=== PATIENT | female | born 1945 | race Caucasian/White ===

== ENCOUNTER 2017-02-19 08:03 | Inpatient (IN) | payer MEDICARE, OTHER ==
[2017-02-19] MEDS ORDERED: Cholestyramine/Aspartame Powder 4 GM Packet PO PRN (12:03)
[2017-02-19] MEDS ORDERED: Take Home: Albuterol 6.7 GM Inhaler, 1 Inhaler Pack INH PRN (12:03)
[2017-02-19] MEDS ORDERED: EPINEPHrine 1:1000 1 MG/ML SDV IM PRN (12:03)
[2017-02-19] MEDS ORDERED: Fluticasone Propionate 110 MCG/Puff 12 GM Inhaler INH PRN (12:03)
[2017-02-19] MEDS ORDERED: Lactulose Soln 10 GM/15 ML 30 ML UD Cup PO PRN (12:03)
[2017-02-19] MEDS ORDERED: Methotrexate 2.5 MG Tab PO SCH (12:15)
[2017-02-19] MEDS: oxyCODONE 5 MG Tab PO PRN ×3 (13:09→21:24)
[2017-02-19] MEDS ORDERED: Cyanocobalamin (Vitamin B12) 1,000 MCG/ML SDV IM SCH (13:30)
[2017-02-19] MEDS: Simvastatin 10 MG Tab PO SCH (21:26)
[2017-02-19] MEDS: Budesonide 0.5 MG/2 ML Neb Susp NEB SCH (21:26)
[2017-02-19] MEDS: Enoxaparin 40 MG/0.4 ML Syringe SUBCUT SCH (21:26)
[2017-02-20] MEDS: oxyCODONE 5 MG Tab PO PRN ×5 (01:43→21:10)
[2017-02-20 07:16] LABS: CHLORIDE,CL 101 mmol/L (98-107); SODIUM,NA 138 mmol/L (136-145)
[2017-02-20] MEDS: Folic Acid 1 MG Tab PO SCH (07:31)
[2017-02-20] MEDS: Calcium Carbonate/Vitamin D3 1250 MG-200 Unit Tab PO SCH (07:31)
[2017-02-20] MEDS: Hydrochlorothiazide 25 MG Tab PO SCH (07:31)
[2017-02-20] MEDS: Cholecalciferol (Vitamin D3) 1,000 Unit Tab PO SCH (07:32)
[2017-02-20] MEDS: Multivitamins with Iron/Calcium/Folic Acid/Minerals Tab PO SCH (07:32)
[2017-02-20] MEDS: Allopurinol 100 MG Tab PO SCH (07:32)
[2017-02-20] MEDS: Budesonide 0.5 MG/2 ML Neb Susp NEB SCH ×2 (07:38→20:24)
[2017-02-20] MEDS: Albuterol 0.083% 2.5 MG/3 ML Neb Soln NEB PRN (07:39)
--- NOTE | 2017-02-20 09:40 | HP ---
Swing bed admission note. CHIEF COMPLAINT: The patient is a 72-year-old female, who underwent an urgent hip fracture surgery on 02/13/2017 with ORIF of her left hip due to a traumatic fall that happened on 02/12/2017. While the patient was recovering from her surgery, she did have some mild anemia, but did not require blood transfusions. She did have some constipation and diarrhea. There is no discharge summary available to me at the time of the patient's transfer to [place]. Her pain has been controlled with oral medications. The patient did have 1 unit transfused of packed RBCs. The patient did have a CT scan of her abdomen to rule out an acute hematoma formation that was done on 02/15/2017. She has had soft tissue swelling at the site, also on 02/15/2017, she did have an ultrasound done of her thigh and no evidence of fluid collection around incision, at the time of transfer here her hemoglobin done on 02/17/2017 was 8.8. She had been down to 6.7, white blood cell count 7.3, platelets are 258. She had a hepatic function done which came back normal and sodium was 135, potassium 4.3, creatinine 0.7, BUN 10, and glucose 135. The patient's appointments are to be with Ortho on 03/05/2017 for bone health evaluation and then on 03/06/2017 with Orthopedic surgery. The patient's medications at that time of transfer are milk of magnesia, every day as needed, Glycerin suppository daily as needed, bisacodyl suppository 10 mg daily as needed. Fleet enema as needed, Tylenol 650 every 4 hours as needed, Imodium 2 pills after loose stools. She is on enoxaparin 40 mg subq at bedtime for 24 doses, lactulose 30 mL once a day as needed for constipation; oxycodone 5 mg, every 4 hours as needed for pain, fluticasone 110 mcg inhaler two puffs twice a day as needed for shortness of breath. Acetaminophen 500 mg tablet two pills every 6 hours as needed. Albuterol HFA two puffs every 4 to 6 hours as needed, Allergy serum as directed, allopurinol 100 mg one pill daily. Calcium with vitamin D 500/200 one pill daily, cholestyramine 4 g packet one packet daily, vitamin B12 injections 1000 mcg every 2 weeks. Epinephrine p.r.n. allergic reactions, folic acid 1 mg one pill daily, hydrochlorothiazide 25 mg one pill daily, levothyroxine 175 mcg one pill daily, methotrexate 2.5 mg tablets. She takes 15 mg by mouth once a week. Resume 3 weeks to allow bone healing to occur, simvastatin 10 mg one pill at bedtime, vitamin D3 2000 units one pill a day. Diet is regular. ALLERGIES: The patient has allergy to codeine. PAST MEDICAL HISTORY: The patient has hypertension, hypothyroidism, hyperlipidemia, positive ZABRINA, rheumatoid arthritis with multiple sites with negative rheumatoid factor. She has had B12 deficiency, gastroesophageal reflux disease, history of gastric bypass and gout, moderate asthma without complications, paresthesias in 2008, negative workup, then B12 deficiency. She has had sleep apnea, wears CPAP machine. She has had syncope workup in 2013 unknown cause. She would have sudden intracellular bleed but unchanged EEG pending. She has had allergic rhinitis, atopic dermatitis, She had osteopenia noted in 2009, and had worsened on Dexa on 03/09/2015. She has had cataracts. She has had hypertrophy of her nasal turbinates. She has had osteoarthritis of multiple joints, PAST SURGICAL HISTORY: She has had cataract surgery, gastric bypass on 05/17/2010, [place]. She has had a cholecystectomy in 2012. Left hip was nailed on 02/13/2017. She had an appendectomy, carpal tunnel surgery, neuroplasty of median nerve, carpal tunnel surgery. She has had tubal ligation. FAMILY MEDICAL HISTORY: Father had prostate cancer. Mother had colon cancer. Brother has had manic depression. Sisters had hypertension. SOCIAL HISTORY: The patient is . Former smoker. She quit smoking in 1986, prior that she had smoked a pack a day. The patient has occasional consumption of alcohol. REVIEW OF SYSTEMS: The patient does have some weakness with moving around. Especially trying to move her hips. No headaches, no coughing, does have some nasal congestion which is chronic. No chest pain. No heartburn, has had some diarrhea. No numbness or tingling of her extremities. OBJECTIVELY: Vital Signs: Her vital signs show that her blood pressure is 117/53, temperature is 98.7, pulse is 87, respirations are 20, and sats are 98%. General: She is alert, pleasant to visit with. She does have some bruising around her left thigh. Incision on her left hip is bandaged with no surrounding erythema. HEENT: Her swelling pupils are equal and reactive to light. Pharynx is normal. Nose is congested. Neck: No anterior cervical lymphadenopathy. Heart: Regular rate and rhythm without murmurs or bruits. Lungs: Clear to auscultation. Abdomen: Bowel sounds present. Soft, nontender. Extremities: Lower. extremities, no edema. She is wearing support stockings. Neurologic: She is alert, pleasant to visit with. SKIN: Left hip dressing over incision. Surrounding skin not bruised nor red, nor warm. IMPRESSION: 1. Deconditioning post left hip fracture with surgery. 2. Anemia secondary to blood loss. 3. Hypertension. 4. Hypothyroidism. 5. Asthma. 6. Sleep apnea. PLAN: The patient will be admitted to swing bed. She is code level 1 status and does desire resuscitation. We will check lab work on patient tomorrow as well as a urine test, she will receive physical therapy and occupational therapy. Anticipate, the patient to be able to return home with her family in about one to two weeks depending on her progress with physical therapy. She will be on Lovenox shots for DVT prophylaxis. Wound care per instructions from Ortho and she will follow up with Ortho as well as [facility]. She is to have Salbador stockings on every day. GM02/19/2017 12:59:54 MODL: 02/19/2017 18:03:18 /[id number] MTDD
[2017-02-20] MEDS: Acetaminophen 500 MG Tab PO PRN ×2 (13:35→21:10)
[2017-02-20] MEDS: Docusate Sodium 100 MG Cap PO SCH (20:24)
[2017-02-20] MEDS: Enoxaparin 40 MG/0.4 ML Syringe SUBCUT SCH (20:24)
[2017-02-20] MEDS: Simvastatin 10 MG Tab PO SCH (20:24)
[2017-02-21] MEDS: oxyCODONE 5 MG Tab PO PRN ×5 (02:01→21:49)
[2017-02-21] MEDS: Acetaminophen 500 MG Tab PO PRN ×3 (06:22→19:47)
[2017-02-21] MEDS: Budesonide 0.5 MG/2 ML Neb Susp NEB SCH ×2 (07:16→19:48)
[2017-02-21] MEDS: Albuterol 0.083% 2.5 MG/3 ML Neb Soln NEB PRN (07:16)
[2017-02-21] MEDS: Cholecalciferol (Vitamin D3) 1,000 Unit Tab PO SCH (08:11)
[2017-02-21] MEDS: Allopurinol 100 MG Tab PO SCH (08:11)
[2017-02-21] MEDS: Calcium Carbonate/Vitamin D3 1250 MG-200 Unit Tab PO SCH (08:11)
[2017-02-21] MEDS: Folic Acid 1 MG Tab PO SCH (08:11)
[2017-02-21] MEDS: Hydrochlorothiazide 25 MG Tab PO SCH (08:11)
[2017-02-21] MEDS: Multivitamins with Iron/Calcium/Folic Acid/Minerals Tab PO SCH (08:12)
[2017-02-21] MEDS: Simvastatin 10 MG Tab PO SCH (19:47)
[2017-02-21] MEDS: Docusate Sodium 100 MG Cap PO SCH (19:47)
[2017-02-21] MEDS: Enoxaparin 40 MG/0.4 ML Syringe SUBCUT SCH (19:48)
[2017-02-22] MEDS: oxyCODONE 5 MG Tab PO PRN ×5 (02:01→22:04)
[2017-02-22] MEDS: Budesonide 0.5 MG/2 ML Neb Susp NEB SCH ×2 (06:10→20:34)
[2017-02-22] MEDS: Hydrochlorothiazide 25 MG Tab PO SCH (08:03)
[2017-02-22] MEDS: Folic Acid 1 MG Tab PO SCH (08:03)
[2017-02-22] MEDS: Calcium Carbonate/Vitamin D3 1250 MG-200 Unit Tab PO SCH (08:03)
[2017-02-22] MEDS: Allopurinol 100 MG Tab PO SCH (08:04)
[2017-02-22] MEDS: Cholecalciferol (Vitamin D3) 1,000 Unit Tab PO SCH (08:04)
[2017-02-22] MEDS: Multivitamins with Iron/Calcium/Folic Acid/Minerals Tab PO SCH (08:04)
[2017-02-22] MEDS: Acetaminophen 500 MG Tab PO PRN ×2 (10:27→16:46)
[2017-02-22] MEDS: Docusate Sodium 100 MG Cap PO SCH (20:34)
[2017-02-22] MEDS: Enoxaparin 40 MG/0.4 ML Syringe SUBCUT SCH (20:34)
[2017-02-22] MEDS: Simvastatin 10 MG Tab PO SCH (20:35)
[2017-02-23] MEDS: Acetaminophen 500 MG Tab PO PRN ×4 (01:01→20:37)
[2017-02-23] MEDS: oxyCODONE 5 MG Tab PO PRN ×5 (03:41→21:59)
[2017-02-23] MEDS: Budesonide 0.5 MG/2 ML Neb Susp NEB SCH ×2 (06:29→20:27)
[2017-02-23] MEDS: Calcium Carbonate/Vitamin D3 1250 MG-200 Unit Tab PO SCH (07:36)
[2017-02-23] MEDS: Multivitamins with Iron/Calcium/Folic Acid/Minerals Tab PO SCH (07:36)
[2017-02-23] MEDS: Folic Acid 1 MG Tab PO SCH (07:36)
[2017-02-23] MEDS: Allopurinol 100 MG Tab PO SCH (07:36)
[2017-02-23] MEDS: Hydrochlorothiazide 25 MG Tab PO SCH (07:36)
[2017-02-23] MEDS: Cholecalciferol (Vitamin D3) 1,000 Unit Tab PO SCH (07:36)
[2017-02-23] MEDS: Docusate Sodium 100 MG Cap PO SCH (20:27)
[2017-02-23] MEDS: Simvastatin 10 MG Tab PO SCH (20:27)
[2017-02-23] MEDS: Enoxaparin 40 MG/0.4 ML Syringe SUBCUT SCH (20:27)
[2017-02-24] MEDS: oxyCODONE 5 MG Tab PO PRN ×6 (02:00→22:38)
[2017-02-24] MEDS: Hydrochlorothiazide 25 MG Tab PO SCH (08:22)
[2017-02-24] MEDS: Folic Acid 1 MG Tab PO SCH (08:22)
[2017-02-24] MEDS: Multivitamins with Iron/Calcium/Folic Acid/Minerals Tab PO SCH (08:22)
[2017-02-24] MEDS: Allopurinol 100 MG Tab PO SCH (08:22)
[2017-02-24] MEDS: Calcium Carbonate/Vitamin D3 1250 MG-200 Unit Tab PO SCH (08:22)
[2017-02-24] MEDS: Cholecalciferol (Vitamin D3) 1,000 Unit Tab PO SCH (08:22)
[2017-02-24] MEDS: Budesonide 0.5 MG/2 ML Neb Susp NEB SCH ×2 (08:22→19:36)
[2017-02-24] MEDS ORDERED: Budesonide 0.25 MG/2 ML Neb Susp INH ONE (08:30)
[2017-02-24] MEDS: Acetaminophen 500 MG Tab PO PRN ×3 (09:00→21:26)
[2017-02-24] MEDS: Simvastatin 10 MG Tab PO SCH (19:35)
[2017-02-24] MEDS: Docusate Sodium 100 MG Cap PO SCH (19:35)
[2017-02-24] MEDS: Enoxaparin 40 MG/0.4 ML Syringe SUBCUT SCH (19:36)
[2017-02-25] MEDS: oxyCODONE 5 MG Tab PO PRN ×5 (03:37→21:58)
[2017-02-25] MEDS: Acetaminophen 500 MG Tab PO PRN ×3 (06:52→20:39)
[2017-02-25] MEDS: Budesonide 0.5 MG/2 ML Neb Susp NEB SCH ×2 (07:24→19:54)
[2017-02-25] MEDS: Hydrochlorothiazide 25 MG Tab PO SCH (07:38)
[2017-02-25] MEDS: Cholecalciferol (Vitamin D3) 1,000 Unit Tab PO SCH (07:39)
[2017-02-25] MEDS: Multivitamins with Iron/Calcium/Folic Acid/Minerals Tab PO SCH (07:39)
[2017-02-25] MEDS: Allopurinol 100 MG Tab PO SCH (07:39)
[2017-02-25] MEDS: Calcium Carbonate/Vitamin D3 1250 MG-200 Unit Tab PO SCH (07:39)
[2017-02-25] MEDS: Folic Acid 1 MG Tab PO SCH (07:39)
--- NOTE | 2017-02-25 09:04 | PN ---
Progress Note for JOB VELASQUEZ Date: 02/25/2017 Room #: .217 SUBJECTIVE: The patient is slowly improving. She is still taking some pain pills to help her ambulate. Her bowels have been a little bit slower. She did take some prune juice. Otherwise, no concerns have been noted. OBJECTIVE: Vital Signs: Her blood pressure is 99/56, her temperature is 36.2, pulse is 76, respirations are 12, sats are 93%. Skin: [place], warm, and dry. Heart: Regular rate and rhythm. Lungs: Clear to auscultation. Abdomen: Soft. LABORATORY DATA: Lab work done today shows her hemoglobin has improved to 10.3, white blood cell count 6.2, and platelets 401. IMPRESSION: 1. Post left hip surgery with strengthening. 2. Anemia, improving. 3. Constipation. 4. Hypertension. 5. Hypothyroidism. 6. Asthma. 7. Sleep apnea. PLAN: Continue physical therapy and occupational therapy. She is on Lovenox. We will up her Colace to twice a day. The patient does have Ortho appointments on and then we will determine if she will be able to be discharged home after that. GM02/25/2017 08:33:16 MODL: 02/25/2017 08:59:27 /[id number]
[2017-02-25] MEDS: Docusate Sodium 100 MG Cap PO SCH ×2 (10:41→19:53)
[2017-02-25] MEDS: Enoxaparin 40 MG/0.4 ML Syringe SUBCUT SCH (19:54)
[2017-02-25] MEDS: Simvastatin 10 MG Tab PO SCH (19:54)
[2017-02-26] MEDS: Acetaminophen 500 MG Tab PO PRN ×3 (06:20→21:18)
[2017-02-26] MEDS: Budesonide 0.5 MG/2 ML Neb Susp NEB SCH ×2 (07:30→19:53)
[2017-02-26] MEDS: Allopurinol 100 MG Tab PO SCH (08:02)
[2017-02-26] MEDS: oxyCODONE 5 MG Tab PO PRN ×4 (08:03→21:56)
[2017-02-26] MEDS: Cholecalciferol (Vitamin D3) 1,000 Unit Tab PO SCH (08:03)
[2017-02-26] MEDS: Calcium Carbonate/Vitamin D3 1250 MG-200 Unit Tab PO SCH (08:03)
[2017-02-26] MEDS: Hydrochlorothiazide 25 MG Tab PO SCH (08:03)
[2017-02-26] MEDS: Folic Acid 1 MG Tab PO SCH (08:03)
[2017-02-26] MEDS: Docusate Sodium 100 MG Cap PO SCH ×2 (08:03→19:53)
[2017-02-26] MEDS: Multivitamins with Iron/Calcium/Folic Acid/Minerals Tab PO SCH (08:04)
[2017-02-26] MEDS: Simvastatin 10 MG Tab PO SCH (19:53)
[2017-02-26] MEDS: Enoxaparin 40 MG/0.4 ML Syringe SUBCUT SCH (19:53)
[2017-02-27] MEDS: oxyCODONE 5 MG Tab PO PRN ×2 (02:34→07:02)
[2017-02-27 05:40] VITALS: BP 102/47
[2017-02-27] MEDS: Acetaminophen 500 MG Tab PO PRN (06:04)
[2017-02-27] MEDS: Budesonide 0.5 MG/2 ML Neb Susp NEB SCH (07:06)
[2017-02-27] MEDS: Cholecalciferol (Vitamin D3) 1,000 Unit Tab PO SCH (07:42)
[2017-02-27] MEDS: Docusate Sodium 100 MG Cap PO SCH (07:42)
[2017-02-27] MEDS: Multivitamins with Iron/Calcium/Folic Acid/Minerals Tab PO SCH (07:42)
[2017-02-27] MEDS: Folic Acid 1 MG Tab PO SCH (07:42)
[2017-02-27] MEDS: Calcium Carbonate/Vitamin D3 1250 MG-200 Unit Tab PO SCH (07:43)
[2017-02-27] MEDS: Hydrochlorothiazide 25 MG Tab PO SCH (07:43)
[2017-02-27] MEDS: Allopurinol 100 MG Tab PO SCH (07:43)
--- NOTE | 2017-02-27 08:22 | DISCH ---
DISCHARGE DIAGNOSES: LEFT HIP FRACTURE DECONDITIONED, post surgery, ANEMIA SECONDARY TO BLOOD LOSS, OBSTRUCTIVE SLEEP APNEA, ASTHMA, HYPOTHYROID, RHEUMATOID ARTHRITIS, HYPERCHOLESTEROLEMIA, CONSTIPATION, HYPERTENSION> SUMMARY OF HOSPITAL COURSE: The patient was admitted to the hospital on 02/19/2017 to recover from urgent hip surgery. Patient had had a fall with a fracture of her left hip on 02/12/2017 and underwent surgery on 02/13/2017. She did need a blood transfusion postsurgery at her acute care hospital. While coming here, her hemoglobin was monitored and it did gradually improve. The patient did have some problems with constipation, did have to have increase of her bowel medications. She progressed nicely with physical therapy as well as occupational therapy. The patient had been on Lovenox for blood thinner, protection for DVTs, it was noted at home, she had not been taking her Flovent inhaler. She had been placed on Pulmicort nebs, which did not necessarily noted to improve lung function. She will be following up with her lawn caretaker after her discharge home. The patient will be in need of home health to help with recovery as well as home physical therapy. The patient will be seen by ortho on 02/27/2017, which will also be her date of her discharge. Her wound has been healing nicely with no concerns noted. LABORATORY DATA: Her lab work had shown on admission, her hemoglobin was 8.8 on 02/20/2017, was up to 10.3 by 02/25/2017 with white blood cell count 6.5 on 02/25 and platelets of 401. On 02/20, she had a sodium of 138, potassium 3.6, creatinine 0.8, GFR greater than 60. Glucose 88. Urine test had been done on admission had been normal. DISCHARGE MEDICATIONS: Tylenol Extra Strength 1000 mg q.6 hours p.r.n., she will be on oxycodone 5 mg every 4 hours as needed for pain, docusate 100 mg 1 pill twice a day, enoxaparin 40 mg subcu from 03/19/2017 to 03/15/2017. She will be on albuterol 2 puffs every 4 hours as needed, allopurinol 100 mg 1 pill daily, calcium carbonate with vitamin D 500/600 one pill daily, vitamin D3 2000 units daily, cholestyramine 4 g oral daily p.r.n. diarrhea, vitamin B12 injections 1000 mcg every 14 days, epinephrine IM p.r.n. anaphylactic reaction, folic acid 1 mg oral daily, hydrochlorothiazide 25 mg 1 pill daily, levothyroxine 175 mcg 1 pill daily, methotrexate 15 mg oral weekly, resume few weeks after her surgery, multivitamin 1 pill daily, simvastatin 10 mg 1 pill at bedtime. The patient will follow up with me in 2 weeks' time in the clinic. She will be seen by Ortho on the day of discharge. The patient is felt to be in need of home health care as the patient is limited with ambulation with her use for need of a walker because of her recovery from hip surgery as she has pain and difficulty with ambulation and difficulty doing stairs. She will need physical therapy for increased strengthening for recovery. The patient will be monitored by myself for her advancement with physical therapy in an intention that the patient will be able to become independent on her own again. The patient is code level 1 status at the time of discharge. GM02/26/2017 08:35:30 MODL: 02/27/2017 02:07:52 /[id number] MTDD
[2017-03-12] MEDS ORDERED: Methotrexate 2.5 MG Tab PO SCH (08:00)
== END 2017-02-27 07:50 | disposition home health service (06) | DRG 560 ==
LOC: VM.MS 11:16 → UNDOADMIN 11:28 → VM.MS 11:28
PROVIDERS: ADMIT Family Medicine; ATTEND Family Medicine
DX: S72.002D Fracture of unspecified part of neck of left femur, subsequent encounter for closed fracture with routine healing (principal); D62 Acute posthemorrhagic anemia; G47.33 Obstructive sleep apnea (adult) (pediatric); J45.909 Unspecified asthma, uncomplicated; E03.9 Hypothyroidism, unspecified; M06.9 Rheumatoid arthritis, unspecified; E78.00 Pure hypercholesterolemia, unspecified; K59.00 Constipation, unspecified; I10 Essential (primary) hypertension; W19.XXXD Unspecified fall, subsequent encounter; Z79.899 Other long term (current) drug therapy
CPT/HCPCS: 36415; 80048; 81001; 85025; 94640-76; 94760; 97110-GP; 97116-GP; 97161-GP; 97165-GO; 97530-GP; 97535-GO; A9270-GY; J1650; J3420; J7620-GY; J7634

== ENCOUNTER 2023-09-05 07:44 | Day surgery (SDC) | payer MEDICARE, OTHER ==
[2023-09-05] MEDS: Lactated Ringers 1,000 ML IV SCH (08:07)
[2023-09-05] MEDS ORDERED: Midazolam 1 MG/ML 2 ML SDV ONE (09:43)
[2023-09-05] MEDS ORDERED: Propofol 200 MG/20 ML SDV ONE (09:43)
[2023-09-05] MEDS ORDERED: fentaNYL 100 MCG/2 ML SDV ONE (09:43)
[2023-09-05 11:06] VITALS: BP 153/83; PULSE 73
== END 2023-09-05 11:40 | disposition home or self-care (01) ==
LOC: VM.SDS 07:44
PROVIDERS: ATTEND Student in an Organized Health Care Education/Training Program
DX: Z12.11 Encounter for screening for malignant neoplasm of colon (principal); D12.2 Benign neoplasm of ascending colon; I10 Essential (primary) hypertension; E03.9 Hypothyroidism, unspecified; I25.10 Atherosclerotic heart disease of native coronary artery without angina pectoris; M06.9 Rheumatoid arthritis, unspecified; J45.909 Unspecified asthma, uncomplicated; I65.23 Occlusion and stenosis of bilateral carotid arteries; Z79.899 Other long term (current) drug therapy; Z79.890 Hormone replacement therapy; Z88.5 Allergy status to narcotic agent; Z88.2 Allergy status to sulfonamides
CPT/HCPCS: 00812; 45378; J2250; J2704; J3010; J7120